=== PATIENT | female | born 1950 | race Caucasian/White ===

== ENCOUNTER → 2016-08-31 | Outpatient (CLI) | payer OTHER ==
[~2016-08-31] MED LIST: ALBUAER2 INH; ASPCH81X PO; CALCTAB5 PO; CETI10TA10 PO; CITA20TA4 PO; DICL1GEL12 EXT; EPP3/2 IM; FLUT0.15 NAE; METFORMIN PO; METO50TA7 PO; MULT-506 PO; SIMV10TA5 PO
--- NOTE | 2016-08-31 12:36 | MAMMOGRAPHY REPORT ---
BILATERAL DIGITAL SCREENING MAMMOGRAM WITH CAD: 08/31/2016 CLINICAL HISTORY: Routine screening. Patient has no complaints. TECHNIQUE: Current study was also evaluated with a Computer Aided Detection (CAD) system. Bilatera l CC and MLO views were obtained. COMPARISON: Comparison is made to exams dated: 08/30/2015 mammogram, 08/27/2014 mammogram, 08/26/2013 ma mmogram, 06/27/2012 mammogram, 06/26/2011 mammogram, and 06/23/2010 mammogram - [facility] enter. BREAST COMPOSITION: There are scattered areas of fibroglandular density in both breasts. FINDINGS: No suspicious masses, calcifications, or areas of architectural distortion are noted in e ither breast. There has been no significant interval change compared to prior exams. Scattered bilat eral benign-appearing calcifications are not significantly changed. IMPRESSION: ACR BI-RADS CATEGORY 2: BENIGN There is no mammographic evidence of malignancy. A 1 year screening mammogram is recommended. The p atient will receive written notification of the results. Approximately 10% of breast cancers are not detected with mammography. A negative mammographic repor t should not delay biopsy if a clinically suggestive mass is present. Esperanza Carbajal M.D. /:08/31/2016 12:29:53 Duct Layer: Michela Dhillon, [facility] letter sent: Normal 1/2 BI-RADS Code: ACR BI-RADS Category 2: Benign
== END | disposition home or self-care (01) ==
LOC: C.MAMM 10:36
PROVIDERS: ATTEND Obstetrics & Gynecology
DX: Z12.31 Encounter for screening mammogram for malignant neoplasm of breast (principal)

== ENCOUNTER → 2017-01-11 | Outpatient (CLI) | payer OTHER ==
[2017-01-11 14:58] LABS: ALT/SGPT 19 U/L (12-78); AST/SGOT 17 U/L (15-37); BLOOD UREA NITROGEN 13 mg/dl (7-18); BUN/CREATININE RATIO 17.9 (10-20); CALCIUM 8.6 mg/dl (8.5-10.1); CARBON DIOXIDE 28 mmol/L (21-32); CHLORIDE 108 mmol/L (98-107); CREATININE 0.72 mg/dl (0.60-1.20); GLUCOSE 91 mg/dl (70-99); POTASSIUM 4.1 mmol/L (3.5-5.1); SODIUM 144 mmol/L (136-145)
[2017-01-11 15:09] LABS: ALB/GLOB RATIO 0.9 (0.9-2); ALKALINE PHOSPHATASE 56 U/L (45-117); CHOLESTEROL 170 mg/dl (0-200); CHOLESTEROL/HDL RATIO 2.8; HDL CHOLESTEROL 60 mg/dl; LDL CHOLESTEROL CALCULATED 69 mg/dl; TRIGLYCERIDES 207 mg/dl (0-150); VERY LOW DENSITY LIPOPROT CALC 41 mg/dl
[2017-01-12 06:24] LABS: ESTIMATED AVERAGE GLUCOSE 111 mg/dl; HA1C FLAG Normal (Normal)
--- NOTE | 2017-01-19 10:20 | CODING QUERY MEDICAL NECESSITY ---
CQSUPPORTING DIAGNOSIS NEEDED A supporting diagnosis is required for the test/procedure performed on this patient in order for us to be reimbursed by the patient's insurance. Please provide a supporting diagnosis for the following test/procedure listed below next to the test name along with your signature. *If there is no additional diagnosis for this patient that would support the following test/procedure please document that below next to the test/procedure. Test(s)/Procedure(s) that require a supporting diagnosis: DOS 01/11/17 GLYCATED HEMOGLOBIN Provider Signature: Date: Thank you Priyanka Eason [email or web address] Once completed, please kindly fax back to [phone] For questions please call [phone]
== END | disposition home or self-care (01) ==
LOC: C.LABBC 10:14
PROVIDERS: ATTEND Family Medicine
DX: E88.81 Metabolic syndrome and other insulin resistance (principal); E78.00 Pure hypercholesterolemia, unspecified; J45.909 Unspecified asthma, uncomplicated; F32.9 Major depressive disorder, single episode, unspecified; Z11.59 Encounter for screening for other viral diseases

== ENCOUNTER → 2017-07-10 | Outpatient (CLI) | payer OTHER | END | disposition home or self-care (01) | LOC: C.PATHSPEC 17:14 | PROVIDERS: ATTEND Ophthalmology | DX: D23.10 Other benign neoplasm of skin of unspecified eyelid, including canthus (principal) ==

== ENCOUNTER → 2017-08-17 | Outpatient (CLI) | payer OTHER ==
[~2017-08-17] MED LIST changes: -METO50TA7 PO; +METO50TA8 PO
[2017-08-17 13:44] LABS: BLOOD UREA NITROGEN 14 mg/dl (7-18); GLUCOSE 94 mg/dl (70-99)
[2017-08-17 13:45] LABS: ALT/SGPT 18 U/L (12-78); CALCIUM 8.8 mg/dl (8.5-10.1); CARBON DIOXIDE 29 mmol/L (21-32); POTASSIUM 4.1 mmol/L (3.5-5.1); SODIUM 140 mmol/L (136-145)
[2017-08-17 13:50] LABS: CHOLESTEROL 166 mg/dl (0-200); LDL CHOLESTEROL CALCULATED 75 mg/dl
[2017-08-18 07:22] LABS: HEMOGLOBIN A1C 5.6 % (4.5-5.6)
--- NOTE | 2017-08-23 12:50 | CODING QUERY MEDICAL NECESSITY ---
SUPPORTING DIAGNOSIS NEEDED A supporting diagnosis is required for the test/procedure performed on this patient in order for us to be reimbursed by the patient's insurance. Please provide a supporting diagnosis for the following test/procedure listed below next to the test name along with your signature. *If there is no additional diagnosis for this patient that would support the following test/procedure please document that below next to the test/procedure. Test(s)/Procedure(s) that require a supporting diagnosis: * HEMOGLOBIN A1C DIAGNOSIS: Provider Signature: Date: Thank you Opal Avila [employer] Once completed, please kindly fax back to [phone] For questions please call [phone]
== END | disposition home or self-care (01) ==
LOC: C.LABBC 09:53
PROVIDERS: ATTEND Family Medicine
DX: E88.81 Metabolic syndrome and other insulin resistance (principal); E78.00 Pure hypercholesterolemia, unspecified

== ENCOUNTER → 2017-10-08 | Outpatient (CLI) | payer OTHER ==
--- NOTE | 2017-10-08 15:54 | DIAGNOSTIC IMAGING REPORT ---
LUMBAR SPINE 5 VIEWS CLINICAL HISTORY: Fall one month ago. Low back pain. FINDINGS: 5 views of the lumbar spine are obtained. No prior studies are available for comparison at the time of dictation. The skeletal structures are osteopenic. There is no radiographic evidence of fracture or malalignment. Vertebral body height and alignment are maintained throughout the lumbar spine. Hyperlordosis is observed. The transverse and spinous processes appear intact. There is no evidence of spondylolysis. Tiny anterior osteophytes are seen throughout. Facet arthropathy is seen in the lower lumbar region. Moderate disc space narrowing is seen at L4-L5. Mild disc space narrowing with endplate sclerosis is seen at L1-L2. There is partial sacralization of the body of L5. The visualized bony pelvis appears intact. Mild sclerotic change is noted in the sacroiliac joints. No bowel obstruction is seen. IMPRESSION: 1. No acute bony abnormality is identified in the lumbar spine. 2. Osteopenia and mild spondylotic change as above. Dictated: 10/08/2017 3:41 PM Transcribed: 10/08/2017 3:54 PM EMELY_Lorna Electronically signed by: Oseas Montoya M.D. 10/08/2017 3:55 PM Dictated Date/Time: 10/08/2017 3:41 PM
--- NOTE | 2017-10-08 15:57 | DIAGNOSTIC IMAGING REPORT ---
SACRUM COCCYX MIN 2 VIEWS CLINICAL HISTORY: M54.5 trauma. Pain. COMPARISON STUDY: None FINDINGS: Nondisplaced fracture sacrococcygeal junction. Alignment is generally anatomic. Sacral foramina are symmetric. IMPRESSION: Nondisplaced fracture sacrococcygeal junction The above report was generated using voice recognition software. It may contain grammatical, syntax or spelling errors. Electronically signed by: Jesus Walton M.D. 10/08/2017 3:56 PM Dictated Date/Time: 10/08/2017 3:55 PM
--- NOTE | 2017-10-08 16:04 | DIAGNOSTIC IMAGING REPORT ---
LEFT KNEE 2 VIEWS HISTORY: Fall. Left knee pain. COMPARISON: None. FINDINGS: No acute fracture or dislocation. Subtle lucency within the medial aspect of the lateral femoral condyle. This could represent a healing/healed nondisplaced fracture. No joint effusion. Soft tissues are unremarkable. No radiopaque foreign bodies. No knee effusion. IMPRESSION: 1. No acute fracture within the left knee. 2. Subtle lucency within the medial aspect of the lateral femoral condyle. This may represent a healing/healed nondisplaced fracture. Electronically signed by: Clement Andersen M.D. 10/08/2017 4:02 PM Dictated Date/Time: 10/08/2017 3:44 PM
== END ==
LOC: C.RADBC 15:09
PROVIDERS: ATTEND Family Medicine
DX: M25.562 Pain in left knee (principal); M54.5 Low back pain; S32.2XXA Fracture of coccyx, initial encounter for closed fracture; V19.9XXA Pedal cyclist (driver) (passenger) injured in unspecified traffic accident, initial encounter

== ENCOUNTER → 2017-11-26 | Outpatient (CLI) | payer OTHER | END | disposition home or self-care (01) | LOC: C.PAPS 14:31 | PROVIDERS: ATTEND Obstetrics & Gynecology | DX: Z12.4 Encounter for screening for malignant neoplasm of cervix (principal) ==

== ENCOUNTER → 2017-11-28 | Outpatient (CLI) | payer OTHER ==
--- NOTE | 2017-11-29 07:56 | MAMMOGRAPHY REPORT ---
BILATERAL DIGITAL SCREENING MAMMOGRAM TOMOSYNTHESIS WITH CAD: 11/28/2017 CLINICAL HISTORY: Routine screening. Patient has no complaints. TECHNIQUE: Breast tomosynthesis in addition to standard 2D mammography was performed. Current study was also evaluated with a Computer Aided Detection (CAD) system. COMPARISON: Comparison is made to exams dated: 08/31/2016 mammogram, 08/30/2015 mammogram, 08/27/2014 ma mmogram, 08/26/2013 mammogram, 06/27/2012 mammogram, and 06/26/2011 mammogram - [facility]. BREAST COMPOSITION: There are scattered areas of fibroglandular density in both breasts. FINDINGS: There is a stable grouping of faint punctate microcalcifications in the lateral left breast and a few other scattered benign round microcalcifications bilaterally. No suspicious mass, archite ctural distortion or cluster of suspicious microcalcifications is seen. IMPRESSION: ACR BI-RADS CATEGORY 1: NEGATIVE There is no mammographic evidence of malignancy. A 1 year screening mammogram is recommended. The pa tient will receive written notification of the results. Approximately 10% of breast cancers are not detected with mammography. A negative mammographic report should not delay biopsy if a clinically suggestive mass is present. Veronica Barajas M.D. ay/:11/28/2017 12:51:42 Farm Machinery Erector: John Wahl, M, [facility] letter sent: Normal 1/2 BI-RADS Code: ACR BI-RADS Category 1: Negative
== END | disposition home or self-care (01) ==
LOC: C.MAMM 11:02
PROVIDERS: ATTEND Obstetrics & Gynecology
DX: Z12.31 Encounter for screening mammogram for malignant neoplasm of breast (principal)

== ENCOUNTER 2020-03-09 06:26 | Observation (INO) ==
--- NOTE | 2020-02-08 14:26 | PAT Medication Instructions ---
Medication Instructions Date of Service February 08, 2020 Home Medications Medication Instructions Recorded diclofenac sodium 1 % topical gel See Rx Instructions TOPICAL QID 02/25/19 PRN #100 gm pantoprazole 20 mg tablet,delayed 20 mg PO QAM #90 tab 06/19/19 release simvastatin 10 mg tablet 10 mg PO PM #90 tab 06/19/19 venlafaxine 37.5 mg tablet 37.5 mg PO BID #60 tab 01/20/20 Zyrtec 1 tab PO HS albuterol sulfate 1 puff INHALATION UD PRN calcium carbonate [Calcium 600] 600 mg PO BID fluticasone propionate 1 dose INTRANASAL UD PRN multivitamin [Multiple Vitamins] 1 tab PO QAM epinephrine [EpiPen] 0.3 mg IM Q3H PRN diclofenac sodium 1 % topical gel See Rx Instructions TOPICAL QID PRN aspirin [Aspirin Low Dose] 81 mg PO QAM naproxen 500 mg PO BID PRN acetaminophen 500 mg tablet 500 - 1,000 mg PO Q8H PRN pantoprazole 20 mg tablet,delayed release 20 mg PO QAM simvastatin 10 mg tablet 10 mg PO PM venlafaxine 37.5 mg tablet 37.5 mg PO BID metoprolol succinate [Toprol XL] 50 mg PO QAM Continue as directed epinephrine [EpiPen] 0.3 mg IM Q3H PRN (if needed) ASK your surgeon for instructions naproxen 500 mg PO BID PRN STOP taking 24 hours before surgery diclofenac sodium 1 % topical gel See Rx Instructions TOPICAL QID PRN DO NOT take the morning of surgery calcium carbonate [Calcium 600] 600 mg PO BID multivitamin [Multiple Vitamins] 1 tab PO QAM Take morning of surgery With a small sip of water, OTHERWISE NOTHING TO EAT OR DRINK AFTER MIDNIGHT: albuterol sulfate 1 puff INHALATION UD PRN (use if needed; please bring with you to hospital day of surgery if possible) fluticasone propionate 1 dose INTRANASAL UD PRN (if needed) aspirin [Aspirin Low Dose] 81 mg PO QAM acetaminophen 500 mg tablet 500 - 1,000 mg PO Q8H PRN (okay to take up to 4 hours prior to surgery if needed) pantoprazole 20 mg tablet,delayed release 20 mg PO QAM venlafaxine 37.5 mg tablet 37.5 mg PO BID metoprolol succinate [Toprol XL] 50 mg PO QAM Take evening before surgery Zyrtec 1 tab PO HS albuterol sulfate 1 puff INHALATION UD PRN (if needed) calcium carbonate [Calcium 600] 600 mg PO BID fluticasone propionate 1 dose INTRANASAL UD PRN (if needed) acetaminophen 500 mg tablet 500 - 1,000 mg PO Q8H PRN (if needed) simvastatin 10 mg tablet 10 mg PO PM venlafaxine 37.5 mg tablet 37.5 mg PO BID Other Notes If you have any questions please call us at [phone] or [phone] or [phone] or [phone]
--- NOTE | 2020-02-12 10:25 | Anesthesiology Consultation ---
Date of Service February 12, 2020 Assessment & Plan (1) Encounter for pre-operative examination: - Awaiting cardiology office visit ([facility] 03/04) and ECHO ([facility] 03/01). Per PAT assessment on 02/11: Travel screen- Drove to [facility] in [facility] (but did not get out of car). No known COVID-19 positive contacts. No cu rrent COVID-19 related symptoms. Patient scheduled for preop protocol COVID-19 testing [place] 03/04 ([place] Awaiting results. - S/P Left TKA: 12/10/18: SAB at L3-L4 + PNB at [facility] Chart Review Chart Review: Patient seen in Pre Admission Testing Teaching & Discussion Pre-Anesthesia Teaching/Discussion Notes: Instructed NPO after midnight before surgery,except medications with 15 cc of water. Medication instructions provided according to the PAT guidelines. History Surgery Operation Date: 03/09/20 12:30 Proposed Procedures p Right Total Knee Arthroplasty - Alf Forde MD Height/Weight Height: 5 ft 4 in Weight: 85.6 kg Allergies Allergy/AdvReac Type Severity Reaction Status Date / Time cephalexin Allergy Severe THROAT Verified 02/04/20 12:17 SWELLS latex Allergy Unknown RASH/SKIN Verified 02/04/20 12:17 "BUBBLING" house dust AdvReac Intermediate CONGESTION, Verified 02/04/20 12:17 ITCHY EYES, SNEEZING mold AdvReac Intermediate CONGESTION, Verified 02/04/20 12:17 ITCHY EYES, SNEEZING pollen extracts AdvReac Intermediate CONGESTION, Verified 02/04/20 12:17 ITCHY EYES, SNEEZING YELLOW JACKETS Allergy Severe ANAPHYLAXIS Uncoded 02/04/20 12:17 Medications Home Medications Medication Instructions Recorded Confirmed Last Taken Zyrtec 1 tab PO HS 11/15/18 02/04/20 12/09/18 21:30 albuterol sulfate 1 puff INHALATION UD PRN 11/15/18 02/04/20 Unknown calcium carbonate [Calcium 600] 600 mg PO BID 11/15/18 02/04/20 12/09/18 13:00 fluticasone propionate 1 dose INTRANASAL UD PRN 11/15/18 02/04/20 Unknown multivitamin [Multiple Vitamins] 1 tab PO QAM 11/15/18 02/04/20 12/09/18 13:00 epinephrine [EpiPen] 0.3 mg IM Q3H PRN 11/27/18 02/04/20 Unknown diclofenac sodium 1 % topical gel See Rx Instructions TOPICAL QID 02/25/19 02/04/20 Unknown PRN #100 gm aspirin [Aspirin Low Dose] 81 mg PO QAM 03/11/19 02/04/20 Unknown naproxen 500 mg PO BID PRN 03/11/19 02/04/20 Unknown acetaminophen 500 mg tablet 500 - 1,000 mg PO Q8H PRN #60 tab 06/19/19 02/04/20 Unknown pantoprazole 20 mg tablet,delayed 20 mg PO QAM #90 tab 06/19/19 02/04/20 Unknown release simvastatin 10 mg tablet 10 mg PO PM #90 tab 06/19/19 02/04/20 Unknown venlafaxine 37.5 mg tablet 37.5 mg PO BID #60 tab 01/20/20 02/04/20 Unknown metoprolol succinate [Toprol XL] 50 mg PO QAM 02/04/20 02/04/20 Unknown Past Medical History Medical History Arthritis Cardiomyopathy hx Depression GERD (gastroesophageal reflux disease) controlled History of asthma stable History of skin cancer BCC Hypercholesterolemia Migraine hx Mitral valve prolapse 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, 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 per 11/2018 e cho Osteoarthritis Osteopenia Psoriasis no recent issues Rheumatoid arthritis Stress incontinence Exercise / Class Metabolic Activity II 4-5 Yardwork/Stairs/Walk up hill Past Family History Family History Mother , age 58 Diabetes Asthma Aplastic anemia Father Prostate cancer Gout Skin cancer Stroke Grandfather (Maternal) Heart disease Pure hypercholesterolemia Grandfather (Paternal) Heart disease Brother PTSD (post-traumatic stress disorder) Denies family history of Ovarian cancer Breast cancer Colorectal cancer Past Surgical History Surgical History History of bilateral cataract extraction History of cardiac cath 1999= NO STENTS History of colonoscopy History of cryosurgery cervix History of left knee replacement Left TKA: 12/10/18: SAB at L3-L4 + PNB at [facility] History of wisdom tooth extraction Status post Mohs surgery BASAL CELL/SQUAMOUS CELL-FACE Past Anesthesia History No Hx of Anesthesia Complications and No Family Hx of Anesthesia Complications History of PONV No Hx of PONV and No Hx of Motion Sickness Social History Smoking Status: Never smoker Do You Dip or Chew Tobacco: No Hx Alcohol Use: Yes Alcohol type: beer, wine and hard liquor alcohol intake frequency: a few times a month Hx Substance Use: No substance use type: does not use Review of Systems Controlled reflux. Patient denies chest pain, shortness of breath, dyspnea on exertion, cough, wheezing, palpitations. Physical Exam Vital Signs VITALS BP 103/56 P 63 TEMP 98.8 SP02 94%RA RESP 16 PHYSICAL Full neck and c-spine range of motion. Full TMJ range of motion. TMD 3 finger breaths Mallampati Score 3 Dentition: missing sides, missing molars, implant on lower right side, several crowns all over Lungs: clear throughout to auscultation Cardiac: regular rate and rhythm, I/ systolic murmur Spine: normal Carotid arteries: negative bruit Extremities: no edema Testing Laboratory Results 02/12/20 10:50 02/12/20 10:50 PT 10.7 Seconds (9.0-12.0) 02/12/20 10:50 INR 1.0 (0.9-1.1) 02/12/20 10:50 APTT 26.0 Seconds (21.0-31.0) 02/12/20 10:50 Hemoglobin A1c 5.6 % (4.5-5.6) 02/12/20 10:50 Blood Type A Negative 02/12/20 10:50 Antibody Screen NEGATIVE 02/12/20 10:50 Electrocardiogram Date: 02/12/20 NSR at 60bpm. Inferior infarct (cited on/before 11/21/18). unconfirmed report. Chest X-Ray Date: 02/12/20 FINDINGS: The cardiac and mediastinal contours are normal. There is no evidence of focal pulmonary consolidation. There is no evidence of failure. No pleural effusions are visualized.[There is a stable area of subsegmental atelectasis/scarring within the retroxiphoid region on the lateral view. IMPRESSION: No active disease in the chest. Echocardiogram Date: 11/27/18 EF 55-60%. No RWMA. Type I DD. Moderate LAD. Myxomatous MV with bileaflet prolapse and moderate, central mitral regurgitation. Stress Test Date: 09/08/16 Type: exercise Type: exercise Negative stress ECHO/EKG for ischemia at 89% MPHR. Chest pain at 5 minutes but resolved within 1 minute of recovery. EF 55%. Type I DD. Mild LAD. Myxomatous MVP with moderate MR. 8.4 METS.
--- NOTE | 2020-02-12 11:12 | XRay Report ---
XR chest Pre-admission PA/Lat CLINICAL HISTORY: Preoperative chest COMPARISON STUDY: 11/21/2018 FINDINGS: The cardiac and mediastinal contours are normal. There is no evidence of focal pulmonary co nsolidation. There is no evidence of failure. No pleural effusions are visualized.[There is a stable area of subsegmental atelectasis/scarring within the retroxiphoid region on the lateral view. IMPRESSION: No active disease in the chest. ACT 112: Negative or not required by law. Electronically signed by: Mustapha Jaramillo M.D. 02/12/2020 11:10 AM
[2020-02-12 12:21] LABS: Basophils # (auto) 0.02 K/uL (0-0.2); Basophils % (auto) 0.3 %; Eosinophils # (auto) 0.16 K/uL (0-0.5); Eosinophils % (auto) 2.3 %; Hematocrit (blood only) 40.7 % (37-47); Hemoglobin 13.4 g/dL (12.0-16.0); Immature Granulocytes # (auto) 0.01 K/uL (0.00-0.02); Immature Granulocytes % (auto) 0.1 %; Lymphocytes # (auto) 2.65 K/uL (1.2-3.4); Lymphocytes % (auto) 37.3 %; Mean Corpuscular Hgb Conc 32.9 g/dL (32-36); Mean Corpuscular Volume 94.2 fL (80-100); Mean Platelet Volume 11.1 fL (7.4-10.4); Monocytes # (auto) 0.34 K/uL (0.11-0.59); Monocytes % (auto) 4.8 %; Neutrophils # (auto) 3.93 K/uL (1.4-6.5); Neutrophils % (auto) 55.2 %; Platelet Count 251 K/uL (130-400); RDW Coefficient of Variation 13.7 % (11.5-14.5); RDW Standard Deviation 47.5 fL (36.4-46.3); Red Blood Count 4.32 M/uL (4.2-5.4); White Blood Count 7.11 K/uL (4.8-10.8)
[2020-02-12 12:29] LABS: Calcium 9.4 mg/dl (8.5-10.1); Creatinine Clr Calc Pharmacy 62.5 ml/min; Est GFR (African American) 75.6; Est GFR (Non-African American) 65.2
[2020-02-12 12:30] LABS: C Reactive Protein 0.49 mg/dl (0-0.29)
[2020-02-12 12:32] LABS: Partial Thromboplastin Ratio 0.9; Prothrombin Time 10.7 Seconds (9.0-12.0)
[2020-02-12 13:26] LABS: Estimated Average Glucose 114 mg/dl; Hemoglobin A1C 5.6 % (4.5-5.6)
--- NOTE | 2020-02-12 21:50 | Electrocardiogram Report ---
Test Reason : Blood Pressure : / mmHG Vent. Rate : 060 BPM Atrial Rate : 060 BPM P-R Int : 192 ms QRS Dur : 096 ms QT Int : 470 ms P-R-T Axes : 050 -09 041 degrees QTc Int : 470 ms Normal sinus rhythm Inferior infarct (cited on or before 21-NOV-2018) Abnormal ECG When compared with ECG of 21-NOV-2018 12:18, No significant change was found Confirmed by Vahid Quiroga ([id number]) on 02/12/2020 9:49:55 PM Referred By: Alf Forde Confirmed By:Vahid Quiroga
--- NOTE | 2020-03-06 10:54 | History and Physical Report ---
DATE OF ADMISSION: 03/09/2020 CHIEF COMPLAINT: Right knee pain. HISTORY OF PRESENT ILLNESS: The patient is a 69-year-old white female who is well known to me from treating her knees over the years. She underwent a left knee replacement a little over a year ago and has done pretty well from this. We had actually scheduled her for right knee replacement in the past. This got rescheduled. She started to do better for a while and decided to cancel it. Pain has gotten worse. She was down in [place] over the winter months and having more and more discomfort. She describes global pain. The more she walks, the more it hurts. It swells more as the day goes on. She has been through extensive conservative treatment including steroid shots and viscosupplementation. She now would like to have her right knee fixed. PAST MEDICAL HISTORY: 1. Elevated cholesterol. 2. Heart murmur. 3. Cardiomyopathy, resolved after a viral illness. 4. Asthma. 5. Anxiety/depression. 6. Gastroesophageal reflux disease. 7. Mild obesity. 8. Skin cancer. PAST SURGICAL HISTORY: Include: 1. Cataract surgery. 2. Left knee replacement done on 12/10/2018. ALLERGIES: KEFLEX, WHICH CAUSES SOME THROAT SWELLING WELL LATEX AND BEE STINGS. CURRENT MEDICINES: Include: 1. Albuterol inhaler. 2. Aspirin 81 mg a day. 3. Calcium with D. 4. Zyrtec. 5. Diclofenac gel. 6. Fluticasone nasal spray. 7. Metoprolol ER 50 mg a day. 8. Multivitamin. 9. Naproxen twice a day. 10. Pantoprazole 20 mg a day. 11. Simvastatin 10 mg a day. 12. Venlafaxine 37.5 mg twice a day. SOCIAL HISTORY: A 69-year-old female. She lives in [place]. Does not smoke. No significant alcohol intake. FAMILY HISTORY: Noncontributory. REVIEW OF HISTORY: Negative for diabetes, neurologic problem, vascular problems or bleeding disorders. Denies any chest pain or shortness of breath. No history of DVT or PE. She was on metformin at one point, but denies any diabetes and not on that now. PHYSICAL EXAMINATION: GENERAL: Shows a pleasant, middle-aged female. Looks to be in pretty good health. HEENT: Benign. NECK: Supple, no lymphadenopathy. LUNGS: Clear to auscultation. HEART: Regular rate and rhythm. ABDOMEN: Soft, nontender, nondistended. EXTREMITIES: Grossly neurovascularly intact except as follows: Examination of the right knee reveals the patient walks with a slight bit of a limp. She has got valgus deformity to her knee, which is a bit worse with weightbearing. Small knee effusion. Range of motion about 5-10 degrees short of full extension to 115 degrees of flexion. There is no gross instability. No pain with hip motion. Examination of the left knee reveals a well-aligned knee. Incision has healed nicely. No significant swelling. Range of motion 0-120. Good straight leg raise. X-RAYS: X-rays of the right knee revealed advanced DJD. She has got tricompartment disease. She has got near complete loss of her joint space laterally. She has got severe patellofemoral arthritis. Left knee replacement looks to be in good position. ASSESSMENT AND PLAN: A 69-year-old white female, a little over a year out from a left knee replacement with advanced right knee tricompartment degenerative joint disease. She was doing a little better and canceled the surgery and now rescheduled as her knee is bothering her and limiting her activities. She would like to have her right knee fixed. She has failed all conservative treatment. She does have multiple other comorbidities including elevated cholesterol, gastroesophageal reflux disease, history of cardiomyopathy, mild obesity and asthma, which slightly increase her risk. She is fully aware and would like to proceed. The risks and benefits of right total knee replacement were explained to the patient including but not limited to DVT, PE, , infection, neurological injury, vascular injury, bleeding problem, pain, limited range of motion, stiffness, failure to relieve her symptoms, incomplete relief of symptoms, need for further surgery in the future, fracture, leg length inequality, nerve palsy. The patient understands and desires to proceed. Informed consent was obtained. She has seen her cardiovascular disease specialist, Dr. Quiroga, and he has cleared her for surgery. It looks like her echo is stable and cardiac function is stable. The cardiomyopathy seems to be resolved. She does have this reaction to Keflex, so we are going to give her vancomycin preoperatively. She is planning to be discharged to home using the home health once adequately recovered in the hospital.
[~2020-03-09 06:26] MED LIST changes: +ACETAMINOPHEN 500 MG TAB PO SCH; -ALBUAER2 INH; -ASPCH81X PO; +BUPIVACAINE LIPOSOME/PF 266 MG, BUPIVACAINE/EPINEPHRINE 50 ML, SODIUM CHLORIDE 0.9% 30 ... INFIL SCH; -CALCTAB5 PO; -CETI10TA10 PO; -CITA20TA4 PO; +CeleBREX 200 MG CAP PO SCH; -DICL1GEL12 EXT; -EPP3/2 IM; -FLUT0.15 NAE; +LR 500ML BOLUS, THEN 15ML/HR IV SCH; +LR 60ML/HR IV SCH; -METFORMIN PO; -METO50TA8 PO; +METOCLOPRAMIDE HCL 10 MG TABLET PO SCH; -MULT-506 PO; -SIMV10TA5 PO; +TRANEXAMIC ACID 1,000 MG **IV Intra-op IV SCH; +TRANEXAMIC ACID 1,000 MG **IV Pre-op IV SCH; +VANCOMYCIN HCL 1,250 MG in SODIUM CHLORIDE 0.9% 250 ML IV SCH
[2020-03-09] MEDS ORDERED: BUPIVACAINE 0.5 % 5 MG/1 ML PF 10ML VIAL ONE (06:34)
--- NOTE | 2020-03-09 06:49 | History & Physical Bridge Note ---
Date of Service March 09, 2020 History & Physical Bridge Note I have examined the patient, reviewed the History & Physical and in the interval since the performance of the History & Physical I have noted the following changes of clinical significance: no changes noted
[2020-03-09] MEDS ORDERED: CeleBREX 200 MG CAP ONE (07:05)
[2020-03-09] MEDS ORDERED: ACETAMINOPHEN 500 MG TAB ONE (07:05)
[2020-03-09] MEDS ORDERED: SCOPOLAMINE 1.5 MG TDSY TD ONE (07:06)
[2020-03-09] MEDS ORDERED: METOCLOPRAMIDE HCL 10 MG TABLET ONE (07:06)
[2020-03-09] MEDS ORDERED: TRANEXAMIC ACID / 0.7% NACL 1000MG/100ML BAG IV ONE (07:07)
[2020-03-09] MEDS ORDERED: fentaNYL citrate 100 MCG/2 ML VIAL ONE (07:14)
[2020-03-09] MEDS ORDERED: MIDAZOLAM HCL 1 MG/ML 2ML VIAL ONE (07:14)
[2020-03-09] MEDS ORDERED: fentaNYL citrate 100 MCG/2 ML VIAL IV PRN (07:57)
[2020-03-09] MEDS ORDERED: ONDANSETRON INJ 2 MG/ML 2 ML VIAL IV PRN ×2 (07:57→11:13)
[2020-03-09] MEDS ORDERED: ATROPINE SULFATE 0.1 MG/ML 10ML SYR IV PRN (07:57)
[2020-03-09] MEDS ORDERED: ePHEDrine sulfate 50 MG/ML AMP IV PRN (07:57)
[2020-03-09] MEDS ORDERED: BUPIVACAINE/EPINEPHRINE 0.25% 1:200,000 30 ML VIAL ONE (08:25)
[2020-03-09] MEDS ORDERED: SODIUM CHLORIDE 0.9% PF 50 ML VIAL ONE (08:25)
[2020-03-09] MEDS ORDERED: BACITRACIN INJ 50,000 UNIT VIAL ONE (08:25)
[2020-03-09] MEDS ORDERED: BUPIVACAINE LIPOSOME 1.3% 266 MG/20 ML VIAL ONE (08:25)
[2020-03-09] MEDS ORDERED: PROPOFOL IV EMULSION 10 MG/ML 20 ML VIAL IV ONE ×3 (08:45→09:15)
[2020-03-09] MEDS ORDERED: ePHEDrine sulfate 50 MG/ML AMP ONE (09:06)
--- NOTE | 2020-03-09 10:13 | Post Operative Brief Note ---
PG Immediate Post Op with CF Date of Surgery March 09, 2020 Pre & Post Diagnosis Operation Date: 03/09/20 08:50 Pre-Op Diagnosis: Right Knee Advanced Degenerative Joint Disease Post-Op Diagnosis: Right Knee Advanced Degenerative Joint Disease I identified the patient and participated in the time-out.: Yes Procedure Operation Date: 03/09/20 08:50 Actual Procedures p Right Total Knee Arthroplasty(Right) - Alf Forde MD Surgeon Alf Forde MD Embedded Software Architect Gladys, PAC Estimated Blood Loss 50 Findings Consistent with Post-Op Diagnosis Fluids 1200 cc Specimens Specimen Description: Permanent: A. Right knee bone and tissue Drains Hardy Catheter Anesthesia Type Spinal MAC Complications none Disposition Accompanied Patient To Recovery: No Disposition: Recovery Room
[2020-03-09] MEDS ORDERED: VANCOMYCIN CONSULT ACTIVE PRN (10:20)
--- NOTE | 2020-03-09 10:31 | Operative Report ---
Post Operative Report Pre & Post Diagnosis Operation Date: 03/09/20 08:50 Pre-Op Diagnosis: Right Knee Advanced Degenerative Joint Disease Post-Op Diagnosis: Right Knee Advanced Degenerative Joint Disease I identified the patient and participated in the time-out.: Yes Procedure Operation Date: 03/09/20 08:50 Actual Procedures p Right Total Knee Arthroplasty(Right) - Alf Forde MD Surgeon Alf Forde MD Lockstitch Cup Setter Gladys, PAC Estimated Blood Loss 50 Findings Consistent with Post-Op Diagnosis Operative findings revealed advanced right knee DJD. She had extensive and diffuse grade 4 changes of the patellofemoral joint and spotty grade 4 changes of the medial and lateral compartments. Moderate sized joint effusion. She had a valgus deformity to her knee. Diffuse osteopenia. Fluids 1200 cc. Specimens Right knee sent for pathology. Drains None. Anesthesia Type Spinal MAC Complications none Disposition Accompanied Patient To Recovery: No Disposition: Recovery Room Indications Patient is a 69-year-old female is had a long history of bilateral knee pain discomfort. She is been through extensive conservative treatment the past. She underwent a left knee replacement a little over a year ago was done quite well with this. She continues be bit debilitated by right knee pain discomfort. She failed all conservative measures. She elected proceed with total knee arthroplasty. Her most severe disease was in the patellofemoral joint. Description of Procedure Operative implants consist of: 1. Biomet Vanguard size 62.5 right posterior stabilized femoral component. 2. Biomet size 63 tibial tray. 3. 12 mm posterior stabilized polyethylene insert. 4. 28 x 8 all poly-patella. Patient was taken to the operating room identified and placed on the operating table supine position protectors were properly padded. IV antibiotics arrived by anesthesia team. Hardy catheter was placed in sterile fashion. Right thigh turn was then placed in the right lower extremity was then prepped and draped in usual sterile fashion. The right leg was elevated and exsanguinated with use of an Esmarch and turns placed at 300 mmHg. An anterior approach to the right knee was then performed through a longitudinal incision centered over the patella. Sharp dissection was gone through subcutaneous tissues down to the level the extensor mechanism. A medial parapatellar arthrotomy incision was made. Some subperiosteal dissection was carried out medially. The fat pad was resected from each patella tendon. Lateral patellofemoral ligament was released. Patella was subluxated laterally and the knee was flexed. The osteophytes were taken off the distal femur. The ACL and PCL were then released in the distal femur and the tibia subluxate anteriorly. The external tibial alignment jig was then placed in the interface the tibia and adjusted 12 mm medially. Proximal tibial cut was made to move about 4 mm of bone from the medial side. The tibia was then sized to a size 63. Attention drawn the femur. The distal femur then with a sharp drill. The intramedullary canal was suction. A right 5 degree valgus cutting guide was placed but distal femoral cutting block was pinned in place. Distal femoral cut was made to take an additional 3 mm of bone off distal femur. The femur was then sized to a size 62.5. We did downsize this almost an entire size due to her narrow medial and lateral dimensions. The AP cutting block was pinned parallel to the epicondylar axis which was 5 degrees of external rotation. The anterior cut, anterior chamfer, posterior cut, posterior chamfer cuts were made. Box cutting guide was placed and adjusted slightly laterally. The box cut was made. The knee was flexed. The remnants of the medial lateral menisci were excised. The osteophytes were taken off the posterior aspect of the femur. A trial femoral component was placed for the tibial tray was pinned in maximum external rotation and the drill and stem punch were used to create defect in proximal tip for the tibial tray. The knee was then trialed and the 12 mm insert fit most appropriately. Of note, we did do a little bit of pie crusting of the IT band and release the popliteus to equalize her gaps. Attention drawn the patella. The patella was cleaned of all soft tissues. Patella was extremely thin. It was 16 mm in thickness and cut down to 12. Size a size 28 patella. Locals were drilled for the 28 patella. The lateral osteophyte was removed. Patella button was placed. Knee was taken through range of motion patella tracked nicely with no thumbs test. Attention drawn to place the permanent components. All trial components were removed. Bone plug was placed in the distal femur to limit blood loss put a double batch Pal[place]os G cement was mixed. BiomUplikeguard size 62.5 right posterior by femoral component, size 63 tibial tray, 12 mm posterior box polyethylene insert, and a 28 x 8 all poly-patella were then cemented in place. Knee was brought out into full extension total cement hardened. Final cement check was then performed. The pericapsular tissues were injected with total 100 cc of combination of 20 cc of Exparel, 30 cc of normal saline, 50 cc of quarter percent Marcaine with epinephrine. Patient did receive 1 g tranexamic acid. The tourniquet was let down for turn time 50 minutes. Hemostasis assured use electrocautery. The wound was once again irrigated. The extensor mechanism then closed with combination 1 PDS suture #1 Vicryl suture in [id number] fashion. Extensor mechanism checked found to be intact the subcutaneous tissue was then closed with 2 Dexon suture in a buried interrupted fashion skin was closed skin carlos. Leg was then cleaned dried a sterile dressing composed Xeroform, 4 x 4's, sterile cast padding, Maykel bandage were applied. Patient then transferred to the recovery room in stable condition. Patient tolerated procedure well no complications. I attest to the content of the Intraoperative Record and any orders documented therein. Any exceptions are noted below.
--- NOTE | 2020-03-09 10:37 | XRay Report ---
XR knee RT 1 or 2V routine CLINICAL HISTORY: Postoperative evaluation. COMPARISON: Knee radiographs January 26, 2020. FINDINGS: Alignment of the total right knee arthroplasty is anatomic. There is no fracture or unexpe cted radiopaque foreign body. There are skin carlos. IMPRESSION: Expected findings following total right knee arthroplasty. ACT 112: Negative or not required by law. Electronically signed by: Aydin Redding M.D. 03/09/2020 10:36 AM
--- NOTE | 2020-03-09 10:46 | Anesthesiology Progress Note ---
Date of Service March 09, 2020 Anesthesia Post Procedure Vital Signs Vital Signs: Temp Pulse Resp BP Pulse Ox 03/09/20 10:30 58 L 14 130/58 L 95 03/09/20 10:20 96.8 F L 69 13 120/53 L 96 03/09/20 07:14 98.8 F 66 18 149/90 H 96 Pain Intensity Right Knee: Pain Intensity: 6 Transfer of Care Handoff Completed per policy Notes Mental Status: alert / awake / arousable and participated in evaluation Patient Amnestic to Procedure: Yes Nausea / Vomiting: adequately controlled Pain: adequately controlled Airway Patency, RR, SpO2: stable & adequate BP & HR: stable & adequate Hydration State: stable & adequate Neuraxial Anesthesia: was administered and sensory block is resolving Anesthetic Complications: no major complications apparent and Pt Satisfied with anesthetic care
[2020-03-09] MEDS ORDERED: TRAMADOL HCL 50 MG TABLET PO PRN (11:13)
[2020-03-09] MEDS ORDERED: NALOXONE HCL 0.4 MG/1 ML VIAL/CARP IV PRN (11:13)
[2020-03-09] MEDS ORDERED: bisacodyL 10 MG SUPP PR PRN (11:13)
[2020-03-09] MEDS ORDERED: METOCLOPRAMIDE HCL INJ 5 MG/ML 2 ML VIAL IV PRN (11:13)
[2020-03-09] MEDS ORDERED: ALUMINUM/MAGNESIUM SUSP 30 ML UDC PO PRN (11:13)
[2020-03-09] MEDS ORDERED: MAGNESIUM HYDROXIDE SUSP 30 ML UDC PO PRN (11:13)
[2020-03-09] MEDS ORDERED: FLUTICASONE PROPIONATE NA SPR 16 GM BTL NAE PRN (11:13)
[2020-03-09] MEDS ORDERED: ALBUTEROL HFA 8 GM INHALER INH PRN (11:13)
[2020-03-09] MEDS ORDERED: HYDROmorphone INJ 0.5 MG/0.5 ML SYR IV PRN (11:13)
[2020-03-09] MEDS ORDERED: EPINEPHRINE ADULT AUTO-INJECT 0.3 MG SYR IM PRN (11:13)
[2020-03-09] MEDS: SODIUM CHLORIDE 0.9% 1000ML 1,000 ML IV SCH (13:03)
[2020-03-09] MEDS: ACETAMINOPHEN 500 MG TAB PO SCH ×2 (13:03→21:29)
[2020-03-09] MEDS: KETOROLAC TROMETHAMINE 15 MG/ML VIAL IV SCH ×2 (13:04→18:09)
[2020-03-09] MEDS: Scopolamine CHECK PATCH PLACEMENT SCH (16:01)
[2020-03-09] MEDS: ASCORBIC ACID 500 MG TAB PO SCH (16:07)
[2020-03-09] MEDS: FERROUS GLUCONATE 324 MG TAB PO SCH (16:07)
[2020-03-09] MEDS ORDERED: TRANEXAMIC ACID / 0.7% NACL 1,000 MG/100 ML BAG IV SCH (16:15)
--- NOTE | 2020-03-09 17:02 | Progress Notes ---
DATE: 03/09/2020 SUBJECTIVE: A 69-year-old white female postop from right knee replacement. She is doing well. Really not much pain yet. No chest pain or shortness of breath. Not feeling dizzy or lightheaded. OBJECTIVE: VITAL SIGNS: Temperature 36.6. Vital signs stable. GENERAL: Shows a pleasant elderly female. I had to wake her when I went in the room this evening. LUNGS: Clear to auscultation. HEART: Has a regular rate and rhythm. ABDOMEN: Soft, nontender, nondistended. EXTREMITIES: Grossly neurovascularly intact except as follows: Examination of the right leg reveals the leg to be well aligned. Dressing is clean, dry and intact. She can dorsiflex and plantarflex her foot appropriately. She is neurologically intact. X-RAYS: X-rays of the right knee from recovery room were reviewed. It shows a right cemented posterior stabilized total knee arthroplasty. Components looked to be in good position. No signs of problems. ASSESSMENT: A 69-year-old white female postop from right knee replacement, doing well. Pain is controlled. She is neurologically intact. PLAN: 1. DVT prophylaxis including thigh-high TEDs, SCDs, and aspirin twice a day. 2. PT/OT. Weight bear as tolerated. Right total knee protocol. 3. Pain control, doing well with current pain regimen. 4. IV antibiotics x24 hours. 5. Disposition: Plan to discharge to home likely with some home health once adequately recovered and medically stable.
[2020-03-09] MEDS ORDERED: VANCOMYCIN HCL 1,250 MG in SODIUM CHLORIDE 0.9% 250 ML IV SCH (19:00)
[2020-03-09] MEDS: CALCIUM CARBONATE 1250MG TAB PO SCH (20:39)
[2020-03-09] MEDS: ASPIRIN 81 MG ECTAB PO SCH (20:39)
[2020-03-09] MEDS: DOCUSATE SODIUM 100 MG CAP PO SCH (20:39)
[2020-03-09] MEDS ORDERED: CALCIUM CARBONATE 1250MG TAB PO SCH (21:00)
[2020-03-09] MEDS ORDERED: SIMVASTATIN 10 MG TAB PO SCH (21:00)
[2020-03-09] MEDS ORDERED: CETIRIZINE HCL 10 MG TABLET PO SCH (21:00)
[2020-03-09] MEDS ORDERED: SENNA 8.6 MG TAB PO SCH (21:00)
[2020-03-10] MEDS: KETOROLAC TROMETHAMINE 15 MG/ML VIAL IV SCH ×3 (00:27→10:13)
[2020-03-10] MEDS: SODIUM CHLORIDE 0.9% 1000ML 1,000 ML IV SCH (01:04)
[2020-03-10] MEDS: Scopolamine CHECK PATCH PLACEMENT SCH ×2 (01:05→08:45)
[2020-03-10] MEDS: ACETAMINOPHEN 500 MG TAB PO SCH (06:00)
[2020-03-10 06:21] LABS: Hematocrit (blood only) 35.4 % (37-47); Hemoglobin 11.9 g/dL (12.0-16.0); Mean Corpuscular Hemoglobin 31.4 pg (25-34); Mean Corpuscular Hgb Conc 33.6 g/dL (32-36); Mean Corpuscular Volume 93.4 fL (80-100); Mean Platelet Volume 10.2 fL (7.4-10.4); Platelet Count 196 K/uL (130-400); RDW Coefficient of Variation 13.9 % (11.5-14.5); RDW Standard Deviation 47.1 fL (36.4-46.3); Red Blood Count 3.79 M/uL (4.2-5.4); White Blood Count 8.29 K/uL (4.8-10.8)
[2020-03-10 06:57] LABS: BUN Creatinine Ratio 17.9 (10-20); Calcium 8.4 mg/dl (8.5-10.1); Creatinine Clr Calc Pharmacy 71.9 ml/min; Est GFR (African American) 89.9; Est GFR (Non-African American) 77.6
--- NOTE | 2020-03-10 07:48 | Progress Notes ---
DATE: 03/10/2020 SUBJECTIVE: A 69-year-old white female postop day 1 from a right knee replacement. She is doing well. Pain is controlled. Had good night sleeping. No chest pain or shortness of breath. Not feeling dizzy or lightheaded. OBJECTIVE: VITAL SIGNS: Temperature 36.9. Vital signs stable. GENERAL: Shows a pleasant, middle-aged female. She is lying in bed and looks comfortable. EXTREMITIES: Examination of the right leg reveals the leg to be well aligned. She can dorsiflex and plantarflex her foot appropriately. She is neurologically intact. LABORATORY DATA: Hemoglobin 11.9. Hematocrit 35.4. Electrolytes are stable. ASSESSMENT: A 69-year-old white female postop day 1 from right knee replacement, doing well. Pain is controlled. She is neurologically intact. PLAN: 1. DVT prophylaxis including thigh-high TEDs, SCDs, and aspirin twice a day. 2. PT/OT. Weight bear as tolerated. Right total knee protocol. 3. Pain control, doing pretty well with current pain regimen. 4. Disposition: She is hoping to be discharged to home with some home health. We will see how therapy goes today and her pain level is controlled.
--- NOTE | 2020-03-10 08:00 | Anesthesiology Progress Note ---
Date of Service March 10, 2020 Anesthesia Post Procedure Vital Signs Vital Signs: Temp Pulse Pulse Resp BP BP Pulse Ox 03/10/20 07:31 36.9 C 60 58 L 16 109/66 128/69 90 03/10/20 07:13 36.9 C 60 16 128/69 90 03/10/20 03:10 36.7 C 58 L 16 122/66 95 03/09/20 23:03 36.9 C 60 16 117/70 92 03/09/20 19:07 36.5 C 64 16 103/64 92 03/09/20 14:12 36.5 C 66 16 109/66 92 03/09/20 13:09 67 18 110/64 97 03/09/20 12:26 37.0 C 64 18 126/69 94 03/09/20 11:37 36.3 C L 54 L 16 144/73 H 95 03/09/20 11:05 36.4 C L 54 L 18 127/72 96 03/09/20 10:50 36.3 C L 53 L 18 138/52 L 94 03/09/20 10:40 52 L 17 141/57 H 94 03/09/20 10:30 58 L 14 130/58 L 95 03/09/20 10:20 36.0 C L 69 13 120/53 L 96 Pain Intensity Right Knee: Pain Intensity: 6 Notes Mental Status: alert / awake / arousable and participated in evaluation Patient Amnestic to Procedure: Yes Nausea / Vomiting: adequately controlled Pain: adequately controlled Airway Patency, RR, SpO2: stable & adequate BP & HR: stable & adequate Hydration State: stable & adequate Neuraxial Anesthesia: was administered and sensory block resolved Anesthetic Complications: no major complications apparent and Pt Satisfied with anesthetic care
[2020-03-10] MEDS: ASPIRIN 81 MG ECTAB PO SCH (08:44)
[2020-03-10] MEDS: CALCIUM CARBONATE 1250MG TAB PO SCH (08:44)
[2020-03-10] MEDS: FERROUS GLUCONATE 324 MG TAB PO SCH (08:45)
[2020-03-10] MEDS: ASCORBIC ACID 500 MG TAB PO SCH (08:45)
[2020-03-10] MEDS: DOCUSATE SODIUM 100 MG CAP PO SCH (08:45)
[2020-03-10] MEDS ORDERED: MULTIVITAMIN TAB PO SCH ×2 (09:00)
[2020-03-10] MEDS ORDERED: PANTOprazole 40 MG TAB PO SCH (09:00)
[2020-03-10] MEDS ORDERED: VENLAFAXINE HCL XR 37.5 MG CAPXR PO SCH (09:00)
[2020-03-10] MEDS ORDERED: METOPROLOL SUCC 50MG EXT REL TAB PO SCH (09:00)
--- NOTE | 2020-03-16 06:32 | Discharge Summary ---
Date of Service March 16, 2020 Admission HPI Per Admitting Provider Well documented in the H & P Admission Exam (Per Admitting) Constitutional Well documented in the H & P Discharge Data Consultations 03/09/20 11:13 Consult Case Management - Discharge Planning Routine Procedures Performed Operation Date: 03/09/20 08:50 Actual Procedures p Right Total Knee Arthroplasty(Right) - Alf Forde MD Hospital Course (1) Status post total right knee replacement: This patient is a69 y/o female admitted on 03/09/20 and underwent right total knee replacement. She tolerated the procedure well and there were no complications. Transferred to the PACU post op and later to the orthopedic floor for further care. She was given vancomycin for antibiotic prophylaxis. She was also given DURAN stockings, SCDs, and aspirin for DVT prophylaxis. Hemoglobin, hematocrit, and vital signs were monitored during her hospital stay and remained stable. Did not require any blood transfusions. There were no complications during her hospital stay. By post op day #1 the patient was tolerating a regular diet, pain was reasonably controlled with oral pain medicine, and she was participating in physical therapy. On post op day #1 the patient was discharged home and set up with home health care. She was given printed discharge instructions including prescriptions for extra strength tylenol, aspirin, and tramadol. Continue physical therapy, weight bearing as tolerated. Continue DURAN stockings. Follow up approximately 2 weeks post op or sooner if there are problems or concerns. Coding Level of Care Code None Diagnoses Status post total right knee replacement Z96.651
== END 2020-03-10 11:25 | disposition home health service (06) ==
LOC: 3E 06:26 → ASU 06:26